=== PATIENT | female | born 1990 | race Caucasian/White ===

== ENCOUNTER 2018-02-13 23:08 | Emergency (ER) | payer OTHER, SELFPAY ==
[2018-02-13 23:51] LABS: Bilirubin Negative (Negative); Blood, Urine Small (Negative); Glucose, Urine (Dipstick) Negative (Negative); Leukocyte Trace (Negative); Nitrite Negative (Negative); Protein, Urine (Dipstick) Negative (Neg-Trace); Specific Gravity, Urine 1.025 (1.005-1.030); Urobilinogen 0.2 mg/dL (0.2-1.0); pH, Urine 5.5 (5.0-9.0)
[2018-02-13 23:56] LABS: Pregnancy Test - Urine (BHCG) Negative (Negative); Pregu Control Background? CLEAR/WHITE (CLR/WHITE); Pregu Control Bar Appear? YES (CONTROL BAR); Specific Gravity 1.025 (1.002-1.036)
[2018-02-13 23:57] LABS: Clarity Hazy (Clear)
[2018-02-13 23:58] LABS: Bacteria/HPF 2+ HPF (None Seen); Crystals/HPF RARE AMORPH URATES HPF (Negative); Renal Epithelial 0-3 HPF (0-3); Transitional Epithelial 0-3 HPF (0-3); Yeast-All Forms Rare HPF (None Seen)
== END 2018-02-14 00:12 | disposition home or self-care (01) ==
LOC: MADERS 23:08
DX: N93.9 Abnormal uterine and vaginal bleeding, unspecified (principal); F17.210 Nicotine dependence, cigarettes, uncomplicated
CPT/HCPCS: 81001; 81025; 99284

== ENCOUNTER 2018-12-04 07:56 | Emergency (ER) | payer SELFPAY ==
[2018-12-04 08:46] LABS: Bilirubin Negative (Negative); Blood, Urine Negative (Negative); Clarity Clear (Clear); Glucose, Urine (Dipstick) Negative (Negative); Leukocyte Negative (Negative); Nitrite Negative (Negative); Protein, Urine (Dipstick) Negative (Neg-Trace); Urobilinogen 0.2 mg/dL (0.2-1.0)
[2018-12-04 08:47] LABS: Pregnancy Test - Urine (BHCG) Negative (Negative); Pregu Control Background? CLEAR/WHITE (CLR/WHITE); Pregu Control Bar Appear? YES (CONTROL BAR)
--- NOTE | 2018-12-04 10:58 | ULT ---
TRANSVAGINAL PELVIC ULTRASOUND: HISTORY: Right-sided suprapubic pain, acute. COMPARISON: None. FINDINGS: There is a negative test. Real-time, isaac-scale, color Doppler, and spectral analysis of t he pelvis was performed with a transabdominal and transvaginal approach. The uterus measures 9.3 x 5 .3 x 3.8 cm. Endometrial thickness is 8 mm, normal. The ovaries are normal. The right ovary measures 2.4 x 2.6 x 1.9 cm. The left ovary measures 3.1 x 2 x 2 cm. Adequate vascular flow to both ovaries. Multiple peripheral follicles of the ovaries. No free fluid in the cul-de-sac. The urinary bladder is unremarkable. IMPRESSION: Normal examination. POS: CET
== END 2018-12-04 10:55 | disposition home or self-care (01) ==
LOC: MADERS 07:56
DX: S39.011A Strain of muscle, fascia and tendon of abdomen, initial encounter (principal); Z87.891 Personal history of nicotine dependence; X58.XXXA Exposure to other specified factors, initial encounter
CPT/HCPCS: 76856; 81003; 81025

== ENCOUNTER 2019-07-05 08:58 | Outpatient (CLI) | payer OTHER ==
[2019-07-05 10:31] LABS: #Eosinphils 0.1 thou/uL (0.0-0.7); #Lymphocytes 1.5 thou/uL (1.20-3.40); #Monocytes 0.4 thou/uL (0.11-0.59); #Neutrophils 5.5 thou/uL (1.40-6.50); %Basophils 0.5 % (0.0-1.0); %Eosinophils 0.7 % (0.0-10.0); %Monocytes 5.5 % (0.0-10.0); %Neutrophils 73.3 % (42.0-75.0); Hemoglobin 10.3 g/dL (12.0-16.0); Mean Corpuscular HGB CONC 33.3 g/dL (32.0-36.0); Mean Corpuscular Hemoglobin 28.1 pg (27.0-31.0); Mean Corpuscular Volume 84.4 fL (78.0-98.0); Mean Platelet Volume 6.8 fL (7.4-10.4); Platelet Count 247 thou/uL (130-400); RBC Distribution Width 12.2 % (11.5-14.5); Red Blood Cell (RBC) Count 3.67 mill/uL (4.20-5.40); White Blood Cell (WBC) Count 7.5 thou/uL (4.8-10.8)
[2019-07-05 17:23] LABS: HIV (1/2) Antibody/Antigen Non-Reactive (NonReactive); HIV 1/2 INDEX 0.13 S/CO (<1.00)
[2019-07-05 17:25] LABS: Syphilis Antibody Nonreactive (Nonreactive); Syphilis Antibody Index 0.03 S/CO (<1.00 Non-Reactive)
== END 2019-07-05 08:59 | disposition home or self-care (01) ==
LOC: MADLABBHPM 08:58
PROVIDERS: ATTEND Family Medicine
DX: Z34.82 Encounter for supervision of other normal pregnancy, second trimester (principal)
CPT/HCPCS: 36415; 82950; 85025; 86780; 87389

== ENCOUNTER 2021-05-24 13:50 | Emergency (ER) | payer BC, OTHER, SELFPAY ==
[2021-05-25 16:01] LABS: SARS-CoV-2 PCR by NAA DETECTED (NotDetected)
== END 2021-05-24 15:20 | disposition home or self-care (01) ==
LOC: MADERS 13:50
DX: U07.1 COVID-19 (principal); F17.210 Nicotine dependence, cigarettes, uncomplicated
CPT/HCPCS: 99284; U0003; U0005

== ENCOUNTER 2021-06-04 22:25 | Emergency (ER) | payer BC ==
[2021-06-04] MEDS ORDERED: Cyclobenzaprine 10 MG TAB ONE (23:43)
[2021-06-04] MEDS ORDERED: Ibuprofen 800 MG TAB ONE ×2 (23:43→23:44)
== END 2021-06-04 23:46 | disposition home or self-care (01) ==
LOC: MADERS 22:25
DX: M54.5 Low back pain (principal); M54.6 Pain in thoracic spine; M54.2 Cervicalgia; V43.62XA Car passenger injured in collision with other type car in traffic accident, initial encounter; Y92.410 Unspecified street and highway as the place of occurrence of the external cause
CPT/HCPCS: 99283

== ENCOUNTER 2021-06-12 08:07 | Emergency (ER) | payer OTHER, BC ==
[2021-06-12] MEDS ORDERED: Acetaminophen 500 MG TAB ONE (08:34)
[2021-06-12] MEDS ORDERED: Boostrix 0.5 ML (Tdap) VIAL ONE (09:15)
== END 2021-06-12 09:32 | disposition home or self-care (01) ==
LOC: MADERS 08:07
DX: S01.01XA Laceration without foreign body of scalp, initial encounter (principal); Z23 Encounter for immunization; W01.198A Fall on same level from slipping, tripping and stumbling with subsequent striking against other object, initial encounter
CPT/HCPCS: 12002; 90471; 90715

== ENCOUNTER 2021-11-19 09:37 | Emergency (ER) | payer BC ==
[2021-11-19] MEDS ORDERED: Lactated Ringer's 1,000 ML ONE (10:41)
[2021-11-19] MEDS ORDERED: Ketorolac Tromethamine 30 MG/ML VIAL ONE (10:54)
[2021-11-19 11:22] LABS: #Lymphocytes 0.9 thou/uL (1.20-3.40); #Monocytes 0.5 thou/uL (0.11-0.59); #Neutrophils 3.8 thou/uL (1.40-6.50); %Basophils 0.5 % (0.0-1.0); %Eosinophils 0.5 % (0.0-10.0); %Lymphocytes 18.1 % (21.0-51.0); %Monocytes 8.7 % (0.0-10.0); %Neutrophils 72.2 % (42.0-75.0); Hemoglobin 14.7 g/dL (12.0-16.0); Mean Corpuscular HGB CONC 31.4 g/dL (32.0-36.0); Mean Corpuscular Hemoglobin 27.2 pg (27.0-31.0); Mean Corpuscular Volume 86.7 fL (78.0-98.0); Mean Platelet Volume 6.8 fL (7.4-10.4); Platelet Count 198 thou/uL (130-400); RBC Distribution Width 12.3 % (11.5-14.5); Red Blood Cell (RBC) Count 5.41 mill/uL (4.20-5.40); White Blood Cell (WBC) Count 5.2 thou/uL (4.8-10.8)
[2021-11-19 11:41] LABS: ALT (SGPT) 24 U/L (8-55); AST (SGOT) 24 U/L (5-34); Albumin 4.4 g/dL (3.5-5.0); Alkaline Phosphatase 69 U/L (40-110); Anion Gap 13 mmol/L (10-20); BHCG - Serum Negative (NEGATIVE); BUN (Urea Nitrogen) 11 mg/dL (7.0-18.7); Bilirubin, Total 0.4 mg/dL (0.2-1.2); Calc. Creatinine Clearance 0 mL/min (70-130); Calcium 9.2 mg/dL (7.8-10.44); Carbon Dioxide 27 mmol/L (22-29); Chloride 101 mmol/L (98-107); Glucose 86 mg/dL (70-105); Lipase 224 U/L (8-78); Potassium 4.1 mmol/L (3.5-5.1); Pregs Control Background? CLEAR/WHITE (CLR/WHITE); Pregs Control Bar Appear? YES (CONTROL BAR); Protein, Total 7.4 g/dL (6.0-8.3); Sodium 137 mmol/L (136-145)
[2021-11-19 22:14] LABS: SARS-CoV-2 PCR by NAA Not Detected (NotDetected)
== END 2021-11-19 12:24 | disposition home or self-care (01) ==
LOC: MADERS 09:37
DX: J10.1 Influenza due to other identified influenza virus with other respiratory manifestations (principal); K85.90 Acute pancreatitis without necrosis or infection, unspecified; F17.210 Nicotine dependence, cigarettes, uncomplicated; Z20.822 Contact with and (suspected) exposure to COVID-19
CPT/HCPCS: 36415; 80053; 83605; 83690; 84703; 85025; 87804; 94760; 96374; J1885; J7120; U0003; U0005

== ENCOUNTER 2022-01-15 00:13 | Emergency (ER) | payer SELFPAY ==
[2022-01-15] MEDS ORDERED: Ondansetron ODT 4 MG TAB ONE (00:46)
== END 2022-01-15 01:03 | disposition home or self-care (01) ==
LOC: MADERS 00:13
DX: K52.9 Noninfective gastroenteritis and colitis, unspecified (principal); F17.210 Nicotine dependence, cigarettes, uncomplicated
CPT/HCPCS: 99283; Q0162

== ENCOUNTER 2022-08-03 21:12 | Emergency (ER) | payer BC, SELFPAY ==
[2022-08-03] MEDS ORDERED: Ondansetron ODT 4 MG TAB ONE (21:34)
== END 2022-08-03 21:44 | disposition home or self-care (01) ==
LOC: MADERS 21:12
DX: K52.9 Noninfective gastroenteritis and colitis, unspecified (principal); Z87.891 Personal history of nicotine dependence
CPT/HCPCS: 99283; Q0162

== ENCOUNTER 2022-11-07 11:49 | Emergency (ER) | payer SELFPAY ==
[2022-11-07] MEDS ORDERED: Ondansetron ODT 4 MG TAB ONE (12:51)
== END 2022-11-07 13:04 | disposition home or self-care (01) ==
LOC: MADERS 11:49
DX: R11.2 Nausea with vomiting, unspecified (principal); Z87.891 Personal history of nicotine dependence
CPT/HCPCS: 99283; Q0162

== ENCOUNTER 2023-05-11 13:24 | Emergency (ER) | payer BC, SELFPAY ==
[2023-05-11 13:51] LABS: Bilirubin Negative (Negative); Blood, Urine Trace (Negative); Clarity Clear (Clear); Glucose, Urine (Dipstick) Negative (Negative); Ketone, Urine 40 mg/dL (Negative); Leukocyte Trace (Negative); Nitrite Negative (Negative); Protein, Urine (Dipstick) Negative (Neg-Trace)
[2023-05-11 13:57] LABS: RBC/HPF 0-3 HPF (0-3); Specific Gravity, Urine 1.028 (1.002-1.036)
[2023-05-11 13:58] LABS: Bacteria/HPF Rare-Few HPF (None Seen); CAUTI Indications for Culture Dysuria,urgency,freq; Pregnancy Test - Urine (BHCG) Negative (Negative); Pregu Control Background? CLEAR/WHITE (CLR/WHITE); Pregu Control Bar Appear? YES (CONTROL BAR); Specific Gravity 1.028 (1.002-1.036); Squamous Epithelial 0-3 HPF (0-3); WBC/HPF 0-3 HPF (0-3)
[2023-05-11 13:59] LABS: Urine Culture Reflex No No
[2023-05-12 02:20] LABS: Chlam.trachomatis by PCR,Urine Not Detected (NotDetected); GC N.gonorrhoeae PCR,UrineVOID Not Detected (NotDetected)
== END 2023-05-11 15:00 | disposition home or self-care (01) ==
LOC: MADERS 13:24
DX: N30.00 Acute cystitis without hematuria (principal); R30.0 Dysuria; Z87.891 Personal history of nicotine dependence
CPT/HCPCS: 81001; 81025; 87491; 87591; 99284

== ENCOUNTER 2023-08-27 08:13 | Emergency (ER) | payer OTHER ==
[2023-08-27] MEDS ORDERED: Dicyclomine 10 MG CAP ONE (08:42)
[2023-08-27] MEDS ORDERED: Ondansetron ODT 4 MG TAB ONE (08:42)
[2023-08-27 09:01] LABS: Pregnancy Test - Urine (BHCG) Negative (Negative); Pregu Control Background? CLEAR/WHITE (CLR/WHITE); Pregu Control Bar Appear? YES (CONTROL BAR); Specific Gravity 1.011 (1.002-1.036)
== END 2023-08-27 09:29 | disposition home or self-care (01) ==
LOC: MADERS 08:13
DX: R11.2 Nausea with vomiting, unspecified (principal); R19.7 Diarrhea, unspecified; Z87.891 Personal history of nicotine dependence
CPT/HCPCS: 81025; 99283; Q0162